=== PATIENT | male | born 1970 | race Caucasian/White ===

== ENCOUNTER 2022-06-24 23:29 | Emergency (ER) | payer OTHER ==
[~2022-06-24] VITALS: Ht 177.8 cm; Wt 111.0 kg
[~2022-06-24 23:29] MED LIST: CIPROFLOXACN500 MG PO; FLAGYL500 MG PO; MEDDOSEPAK PO; VICODIN1 TAB PO; XANAX2 MG PO; ZOFRAN ODT4 MG PO
[2022-06-25 00:27] LABS: HEMATOCRIT 47.3 % (39.0-50.0); HEMOGLOBIN 15.3 g/dl (14.0-18.0); IMMATURE GRANULOCYTES 0.3 % (0.0-5.0); MEAN CORPUSCULAR HGB 29.4 pG CALC (26.0-32.0); MEAN CORPUSCULAR HGB CONC 32.3 g/dL CAL (32.0-36.0); NEUT# 1.57 thou/uL (1.82-7.42); RED BLOOD COUNT 5.2 mill/uL (4.70-6.10); RED CELL DISTRI WIDTH 12.8 % (11.5-15.5)
[2022-06-25 00:44] LABS: ALKALINE PHOSPHATASE 79 u/l (38-126); BILIRUBIN, TOTAL 0.4 mg/dL (0.0-1.4); BUN 10 mg/dL (9-20); BUN/CREATININE RATIO 9 (12-20 (CALC)); CARBON DIOXIDE 29 mmol/l (22-30); CHLORIDE 102 mmol/l (95-108); CREATININE 1.1 mg/dL (0.7-1.3); GFR FOR AFR.AMER. > 60 ML/MIN (>=60 (CALC)); GFR OTHER RACES > 60 ML/MIN (>=60 (CALC)); LIPASE 65 u/l (23-300); SODIUM 138 mmol/l (137-146); TOTAL PROTEIN 6.8 g/dL (6.3-8.2)
[2022-06-25 00:46] LABS: ANION GAP 10 (6-22 (CALC)); POTASSIUM 3.3 mmol/l (3.5-5.1); SGOT/AST 50 u/l (17-59)
[2022-06-25 01:39] LABS: URINE BILIRUBIN - DIPSTICK NEGATIVE (NEGATIVE); URINE BLOOD DIPSTICK NEGATIVE (NEGATIVE); URINE COLOR YELLOW; URINE GLUCOSE - DIPSTICK NEGATIVE (NEGATIVE); URINE KETONE 15 mg/dL (NEGATIVE); URINE LEUK ESTERASE NEGATIVE (NEGATIVE); URINE PROTEIN - DIPSTICK NEGATIVE (NEG-TRACE); URINE SPECIFIC GRAVITY <=1.005; URINE UROBILINOGEN - DIPSTICK 0.2 E.U./dL (0.2)
[2022-06-25 01:41] LABS: URINE NITRITE - DIPSTICK NEGATIVE (Negative)
[2022-06-25] MEDS ORDERED: PROTONIX40 M2 PO ×2 (02:07→11:33)
[2022-06-25 02:12] VITALS: BP 133/95
== END 2022-06-25 03:03 | disposition home or self-care (01) ==
LOC: ED 23:29
PROVIDERS: Family Medicine
DX: U07.1 COVID-19 (principal); R10.13 Epigastric pain; K59.03 Drug induced constipation; T40.605A Adverse effect of unspecified narcotics, initial encounter; M54.9 Dorsalgia, unspecified; G89.29 Other chronic pain
CPT/HCPCS: Q9967; S0164

== ENCOUNTER 2023-08-29 12:47 | Emergency (ER) | payer OTHER ==
[~2023-08-29] VITALS: Ht 177.8 cm; Wt 117.0 kg
[~2023-08-29 12:47] MED LIST changes: +LIPITOR40 M1 PO; +PROTONIX40 M2 PO
[2023-08-29 13:27] VITALS: BP 152/104
[2023-08-29 13:30] VITALS: BP 153/99
[2023-08-29] MEDS ORDERED: ORPHENADRINE CITRATE 30 MG/ML AMP IM ONE (13:50)
[2023-08-29] MEDS ORDERED: KETOROLAC TROMETHAMINE 30 MG/ML SDV IM ONE (13:50)
[2023-08-29] MEDS ORDERED: oxyCODONE 10MG/APAP 325 MG 1 COMBO TAB PO ONE (13:55)
[2023-08-29] MEDS ORDERED: predniSONE 20 MG/TAB PO ONE (13:55)
[2023-08-29 14:00] VITALS: BP 127/86
[2023-08-29 14:30] VITALS: BP 131/82
[2023-08-29] MEDS ORDERED: NAPROXEN500 MG PO (16:17)
[2023-08-29] MEDS ORDERED: PERCOCET 5/325M1 TAB PO (16:17)
[2023-08-29] MEDS ORDERED: CYCLOBENZAPRINE10 MG PO (16:17)
[2023-08-29] MEDS ORDERED: PREDNISONE10 MG PO (16:17)
[2023-08-29 16:25] VITALS: BP 131/82
== END 2023-08-29 16:30 | disposition home or self-care (01) ==
LOC: ED 12:47
DX: M54.50 Low back pain, unspecified (principal); G89.29 Other chronic pain

== ENCOUNTER 2024-02-23 16:25 | Emergency (ER) | payer OTHER ==
[2024-02-23] VITALS (9 sets, daily range): BP systolic 91–118; BP diastolic 52–81
[~2024-02-23] VITALS: Ht 177.8 cm; Wt 120.0 kg
[~2024-02-23 16:25] MED LIST changes: +CYCLOBENZAPRINE10 MG PO; +NAPROXEN500 MG PO; +PERCOCET 5/325M1 TAB PO; +PREDNISONE10 MG PO
[2024-02-23] MEDS ORDERED: SODIUM CHLORIDE 0.9% 1,000 ML IV ONE (16:40)
[2024-02-23 17:02] LABS: BASO% 0.6 % (0-3); EOS% 1.2 % (0-8); HEMATOCRIT 46.1 % (39.0-50.0); HEMOGLOBIN 15.6 g/dl (14.0-18.0); IMMATURE GRANULOCYTES 0.2 % (0.0-5.0); LYMPH% 20.2 % (15-41); MEAN CELL VOLUME 88.8 fL CALC (80.0-100.0); MEAN CORPUSCULAR HGB 30.1 pG CALC (26.0-32.0); MEAN CORPUSCULAR HGB CONC 33.8 g/dL CAL (32.0-36.0); MONO% 8.2 % (2-13); NEUT# 7.3 thou/uL (1.82-7.42); NEUT% 69.6 % (42-76); RED BLOOD COUNT 5.19 mill/uL (4.70-6.10)
[2024-02-23 17:14] LABS: ALBUMIN 4.5 g/dL (3.2-5.0); ALKALINE PHOSPHATASE 78 u/l (38-126); BUN 12 mg/dL (9-20); BUN/CREATININE RATIO 10 (12-20 (CALC)); CHLORIDE 111 mmol/l (95-108); CPK 88 u/l (55-170); CREATININE 1.3 mg/dL (0.7-1.3); ESTIMATED GFR 65 ML/MIN (>=90 (CALC)); POTASSIUM 3.2 mmol/l (3.5-5.1); SGOT/AST 33 u/l (17-59); SODIUM 143 mmol/l (137-146); TOTAL PROTEIN 7.4 g/dL (6.3-8.2)
[2024-02-23 17:20] LABS: ANION GAP 13 (6-22 (CALC)); BILIRUBIN, TOTAL 0.6 mg/dL (0.2-1.3); CARBON DIOXIDE 22 mmol/l (22-30)
== END 2024-02-23 18:30 | disposition home or self-care (01) ==
LOC: ED 16:25
PROVIDERS: Family Medicine
DX: T67.5XXA Heat exhaustion, unspecified, initial encounter (principal); F41.9 Anxiety disorder, unspecified; E66.9 Obesity, unspecified; X30.XXXA Exposure to excessive natural heat, initial encounter